=== PATIENT | male | born 1940 | race Caucasian/White ===

== ENCOUNTER 2020-07-20 14:41 | Inpatient (IN) ==
[2020-07-20] MEDS ORDERED: 0.9 % Sodium Chloride 1,000 ML IVC SCH (15:30)
[2020-07-20] MEDS ORDERED: Naloxone 0.4 MG/ML INJ IVP PRN (16:19)
[2020-07-20] MEDS ORDERED: GlipiZIDE 5 MG TABLET PO SCH (16:30)
[2020-07-20] MEDS: 0.9 % Sodium Chloride 1,000 ML IVC SCH (16:30)
[2020-07-20] MEDS ORDERED: Doxycycline 100 MG CAPSULE PO SCH (21:00)
[2020-07-20] MEDS ORDERED: lisinopriL 20 MG TABLET PO SCH (21:00)
[2020-07-20] MEDS ORDERED: Insulin DETEMIR 100 UNIT/ML per UNIT SUBQ ONE (21:00)
[2020-07-21] MEDS: *HR* Enoxaparin 30 MG/0.3 ML SYRINGE SQ SCH (05:26)
[2020-07-21] MEDS: 0.9 % Sodium Chloride 1,000 ML IVC SCH ×2 (05:29→21:11)
[2020-07-21 06:59] LABS: Hematocrit 26.2 % (37.5-50.1); Hemoglobin 8.4 g/dL (12.9-16.9); Mean Corpuscular HGB Conc 32.1 g/dL (31.6-35.5); Mean Corpuscular Hemoglobin 34.1 pg (28.0-33.3); Mean Corpuscular Volume 106.5 fL (83.0-100.0); Mean Platelet Volume 9.7 fL (9.4-12.4); Platelet Count 209 K/mcL (140-400); Red Blood Count 2.46 M/mcL (4.19-5.50); Red Cell Distribution Width 13.5 % (11.5-14.5); White Blood Count 7.2 K/mcL (4.3-11.1)
[2020-07-21 07:11] LABS: Calcium 8.3 mg/dL (8.6-10.3); Magnesium 2.4 mg/dL (1.6-2.6); Phosphorous 4.8 mg/dL (2.7-4.5); Potassium 5.1 mEq/L (3.5-5.1)
[2020-07-21] MEDS: Multivit/Ca/Min/Fe/FA 1 TAB TABLET PO SCH (08:34)
[2020-07-21] MEDS: Aspirin 81 MG TAB.CHEW PO SCH (08:34)
[2020-07-21] MEDS: amLODIPine 5 MG TABLET PO SCH (08:34)
[2020-07-21] MEDS: Metoprolol XL (24 HR) Succ 50 MG TAB.ER.24H PO SCH (08:35)
[2020-07-21] MEDS: hydroCHLOROthiazide 25 MG TABLET PO SCH (08:41)
[2020-07-21] MEDS ORDERED: CHROMIUM PO SCH (09:00)
[2020-07-21] MEDS ORDERED: *HR* SitaGLIPtin 100 MG TABLET PO SCH (09:00)
[2020-07-21] MEDS ORDERED: Insulin DETEMIR 100 UNIT/ML X5UNITS SUBQ SCH (21:00)
[2020-07-22] MEDS: *HR* Enoxaparin 30 MG/0.3 ML SYRINGE SQ SCH (05:37)
[2020-07-22 06:48] LABS: Basophils # 0.1 K/mcL (0.0-0.2); Basophils % 0.6 %; Eosinophils # 0.2 K/mcL (0.0-0.6); Eosinophils % 2.3 %; Hematocrit 26.2 % (37.5-50.1); Hemoglobin 8.1 g/dL (12.9-16.9); Immature Granulocytes % 0.3 % (0-4); Lymphocytes # 0.8 K/mcL (0.6-4.6); Lymphocytes % 10.3 %; Mean Corpuscular HGB Conc 30.9 g/dL (31.6-35.5); Mean Corpuscular Hemoglobin 33.5 pg (28.0-33.3); Mean Corpuscular Volume 108.3 fL (83.0-100.0); Mean Platelet Volume 9.9 fL (9.4-12.4); Monocytes # 0.7 K/mcL (0.0-1.3); Neutrophils # 6.1 K/mcL (1.6-8.9); Platelet Count 213 K/mcL (140-400); Red Blood Count 2.42 M/mcL (4.19-5.50); Red Cell Distribution Width 13.4 % (11.5-14.5); Segmented Neutrophils % 77.5 %; White Blood Count 7.9 K/mcL (4.3-11.1)
[2020-07-22 07:05] LABS: Calcium 8.2 mg/dL (8.6-10.3); Potassium 4.8 mEq/L (3.5-5.1)
[2020-07-22] MEDS: Metoprolol XL (24 HR) Succ 50 MG TAB.ER.24H PO SCH (10:22)
[2020-07-22] MEDS: amLODIPine 5 MG TABLET PO SCH (10:22)
[2020-07-22] MEDS: *HR* SitaGLIPtin 25 MG TABLET PO SCH (10:22)
[2020-07-22] MEDS: Multivit/Ca/Min/Fe/FA 1 TAB TABLET PO SCH (10:22)
[2020-07-22] MEDS: hydroCHLOROthiazide 25 MG TABLET PO SCH (10:22)
[2020-07-22] MEDS: Aspirin 81 MG TAB.CHEW PO SCH (10:22)
[2020-07-22] MEDS: 0.9 % Sodium Chloride 1,000 ML IVC SCH ×2 (10:26→23:36)
[2020-07-22] MEDS ORDERED: Insulin DETEMIR 100 UNIT/ML per UNIT SUBQ ONE (21:00)
[2020-07-23] MEDS: *HR* Enoxaparin 30 MG/0.3 ML SYRINGE SQ SCH (04:58)
[2020-07-23 05:21] LABS: Basophils % 0.5 %; Eosinophils # 0.2 K/mcL (0.0-0.6); Hematocrit 26.9 % (37.5-50.1); Hemoglobin 8.5 g/dL (12.9-16.9); Immature Granulocytes % 0.4 % (0-4); Lymphocytes # 0.8 K/mcL (0.6-4.6); Lymphocytes % 10.6 %; Mean Corpuscular HGB Conc 31.6 g/dL (31.6-35.5); Mean Corpuscular Hemoglobin 34.3 pg (28.0-33.3); Mean Corpuscular Volume 108.5 fL (83.0-100.0); Mean Platelet Volume 9.8 fL (9.4-12.4); Monocytes # 0.7 K/mcL (0.0-1.3); Monocytes % 8.8 %; Neutrophils # 5.7 K/mcL (1.6-8.9); Platelet Count 207 K/mcL (140-400); Red Blood Count 2.48 M/mcL (4.19-5.50); Red Cell Distribution Width 13.3 % (11.5-14.5); Segmented Neutrophils % 76.7 %; White Blood Count 7.4 K/mcL (4.3-11.1)
[2020-07-23 05:25] LABS: Calcium 8.2 mg/dL (8.6-10.3); Potassium 4.7 mEq/L (3.5-5.1)
[2020-07-23] MEDS: Insulin DETEMIR 100 UNIT/ML X5UNITS SUBQ SCH ×2 (09:25→21:23)
[2020-07-23] MEDS: *HR* SitaGLIPtin 25 MG TABLET PO SCH (09:25)
[2020-07-23] MEDS: hydroCHLOROthiazide 25 MG TABLET PO SCH (09:25)
[2020-07-23] MEDS: Metoprolol XL (24 HR) Succ 50 MG TAB.ER.24H PO SCH (09:25)
[2020-07-23] MEDS: Aspirin 81 MG TAB.CHEW PO SCH (09:25)
[2020-07-23] MEDS: amLODIPine 5 MG TABLET PO SCH (09:25)
[2020-07-23] MEDS: Multivit/Ca/Min/Fe/FA 1 TAB TABLET PO SCH (09:25)
[2020-07-23] MEDS: 0.9 % Sodium Chloride 1,000 ML IVC SCH (12:57)
[2020-07-24] MEDS: 0.9 % Sodium Chloride 1,000 ML IVC SCH (02:30)
[2020-07-24] MEDS: *HR* Enoxaparin 30 MG/0.3 ML SYRINGE SQ SCH (04:57)
[2020-07-24 05:58] LABS: Calcium 8.1 mg/dL (8.6-10.3); Potassium 4.6 mEq/L (3.5-5.1)
[2020-07-24 06:00] LABS: Basophils % 0.5 %; Eosinophils # 0.2 K/mcL (0.0-0.6); Eosinophils % 2.9 %; Hematocrit 27.3 % (37.5-50.1); Hemoglobin 8.4 g/dL (12.9-16.9); Immature Granulocytes % 0.3 % (0-4); Lymphocytes # 0.8 K/mcL (0.6-4.6); Lymphocytes % 9.6 %; Mean Corpuscular HGB Conc 30.8 g/dL (31.6-35.5); Mean Corpuscular Hemoglobin 33.5 pg (28.0-33.3); Mean Corpuscular Volume 108.8 fL (83.0-100.0); Mean Platelet Volume 10.1 fL (9.4-12.4); Monocytes # 0.6 K/mcL (0.0-1.3); Monocytes % 8.2 %; Neutrophils # 6.1 K/mcL (1.6-8.9); Platelet Count 205 K/mcL (140-400); Red Blood Count 2.51 M/mcL (4.19-5.50); Red Cell Distribution Width 13.3 % (11.5-14.5); Segmented Neutrophils % 78.5 %; White Blood Count 7.8 K/mcL (4.3-11.1)
[2020-07-24] MEDS: Multivit/Ca/Min/Fe/FA 1 TAB TABLET PO SCH (09:02)
[2020-07-24] MEDS: *HR* SitaGLIPtin 25 MG TABLET PO SCH (09:02)
[2020-07-24] MEDS: Metoprolol XL (24 HR) Succ 50 MG TAB.ER.24H PO SCH (09:02)
[2020-07-24] MEDS: Aspirin 81 MG TAB.CHEW PO SCH (09:02)
[2020-07-24] MEDS: amLODIPine 5 MG TABLET PO SCH (09:02)
[2020-07-24] MEDS: hydroCHLOROthiazide 25 MG TABLET PO SCH (09:03)
[2020-07-24] MEDS: Insulin DETEMIR 100 UNIT/ML X5UNITS SUBQ SCH ×2 (09:18→20:16)
[2020-07-25] MEDS: *HR* Enoxaparin 30 MG/0.3 ML SYRINGE SQ SCH (05:22)
[2020-07-25] MEDS: Metoprolol XL (24 HR) Succ 50 MG TAB.ER.24H PO SCH (09:24)
[2020-07-25] MEDS: amLODIPine 5 MG TABLET PO SCH (09:25)
[2020-07-25] MEDS: Aspirin 81 MG TAB.CHEW PO SCH (09:26)
[2020-07-25] MEDS: Multivit/Ca/Min/Fe/FA 1 TAB TABLET PO SCH (09:26)
[2020-07-25] MEDS: *HR* SitaGLIPtin 25 MG TABLET PO SCH (09:26)
[2020-07-25] MEDS: hydroCHLOROthiazide 25 MG TABLET PO SCH (09:27)
[2020-07-25] MEDS: Insulin DETEMIR 100 UNIT/ML X5UNITS SUBQ SCH ×2 (09:32→22:03)
[2020-07-26] MEDS: *HR* Enoxaparin 30 MG/0.3 ML SYRINGE SQ SCH (05:21)
[2020-07-26] MEDS: hydroCHLOROthiazide 25 MG TABLET PO SCH (08:12)
[2020-07-26] MEDS: amLODIPine 5 MG TABLET PO SCH (08:12)
[2020-07-26] MEDS: Aspirin 81 MG TAB.CHEW PO SCH (08:12)
[2020-07-26] MEDS: Multivit/Ca/Min/Fe/FA 1 TAB TABLET PO SCH (08:12)
[2020-07-26] MEDS: Metoprolol XL (24 HR) Succ 50 MG TAB.ER.24H PO SCH (08:12)
[2020-07-26] MEDS: *HR* SitaGLIPtin 25 MG TABLET PO SCH (08:12)
[2020-07-26] MEDS: Insulin DETEMIR 100 UNIT/ML X5UNITS SUBQ SCH ×2 (08:26→20:47)
[2020-07-26] MEDS ORDERED: MOM Conc 10 ML UD.LIQ PO ONE ×2 (11:29→18:00)
[2020-07-27] MEDS: *HR* Enoxaparin 30 MG/0.3 ML SYRINGE SQ SCH (04:19)
[2020-07-27] MEDS: Aspirin 81 MG TAB.CHEW PO SCH (08:47)
[2020-07-27] MEDS: *HR* SitaGLIPtin 25 MG TABLET PO SCH (08:48)
[2020-07-27] MEDS: amLODIPine 5 MG TABLET PO SCH (08:48)
[2020-07-27] MEDS: Metoprolol XL (24 HR) Succ 50 MG TAB.ER.24H PO SCH (08:48)
[2020-07-27] MEDS: hydroCHLOROthiazide 25 MG TABLET PO SCH (08:49)
[2020-07-27] MEDS: Multivit/Ca/Min/Fe/FA 1 TAB TABLET PO SCH (08:49)
[2020-07-27] MEDS: Insulin DETEMIR 100 UNIT/ML X5UNITS SUBQ SCH ×2 (08:51→21:45)
[2020-07-27 17:27] LABS: Basophils % 0.5 %; Eosinophils # 0.2 K/mcL (0.0-0.6); Eosinophils % 2.3 %; Hematocrit 28.6 % (37.5-50.1); Hemoglobin 9.1 g/dL (12.9-16.9); Immature Granulocytes % 0.1 % (0-4); Lymphocytes # 0.8 K/mcL (0.6-4.6); Lymphocytes % 10.7 %; Mean Corpuscular HGB Conc 31.8 g/dL (31.6-35.5); Mean Corpuscular Hemoglobin 34.5 pg (28.0-33.3); Mean Corpuscular Volume 108.3 fL (83.0-100.0); Monocytes # 0.6 K/mcL (0.0-1.3); Monocytes % 8.4 %; Neutrophils # 5.7 K/mcL (1.6-8.9); Platelet Count 215 K/mcL (140-400); Red Blood Count 2.64 M/mcL (4.19-5.50); Red Cell Distribution Width 13.5 % (11.5-14.5); White Blood Count 7.4 K/mcL (4.3-11.1)
[2020-07-27 17:41] LABS: Calcium 8.4 mg/dL (8.6-10.3); Potassium 4.6 mEq/L (3.5-5.1)
[2020-07-28] MEDS: *HR* Enoxaparin 30 MG/0.3 ML SYRINGE SQ SCH (05:42)
[2020-07-28] MEDS: Metoprolol XL (24 HR) Succ 50 MG TAB.ER.24H PO SCH (08:26)
[2020-07-28] MEDS: *HR* SitaGLIPtin 25 MG TABLET PO SCH (08:26)
[2020-07-28] MEDS: Multivit/Ca/Min/Fe/FA 1 TAB TABLET PO SCH (08:27)
[2020-07-28] MEDS: Aspirin 81 MG TAB.CHEW PO SCH (08:27)
[2020-07-28] MEDS: hydroCHLOROthiazide 25 MG TABLET PO SCH (08:28)
[2020-07-28] MEDS: amLODIPine 5 MG TABLET PO SCH (08:28)
[2020-07-28] MEDS: Insulin DETEMIR 100 UNIT/ML X5UNITS SUBQ SCH (08:43)
[2020-07-28 11:31] VITALS: BP 138/68
== END 2020-07-28 13:11 | DRG 684 ==
LOC: INPGRE 14:41 → EMEROOGRE 14:41 → INPGRE 16:23
PROVIDERS: ADMIT Family Medicine; ATTEND Family Medicine